=== PATIENT | male | born 1965 | race Caucasian/White ===

== ENCOUNTER 2023-04-09 17:35 | Inpatient (IN) | payer OTHER ==
[~2023-04-09] VITALS: Ht 167.6 cm; Wt 75.9 kg
[2023-04-09] MEDS ORDERED: DiphenhydrAMINE HCL 50 MG/ML VIAL IV ONE (18:00)
[2023-04-09] MEDS ORDERED: 0.9%NACL 1000ML 1,000 ML IV ONE (18:00)
[2023-04-09 18:12] LABS: HEMATOCRIT 37.3 % (42-54); MEAN CORPUSCULAR HEMOGLOBIN 31.3 pg (27.0-33.0); MEAN CORPUSCULAR HGB CONC 32.4 g/dL (32.0-36.0); MEAN CORPUSCULAR VOLUME 96.4 fL (79-99); PLATELET COUNT (AUTO) 632 K/uL (130-400); RED BLOOD CELL COUNT(AUTO) 3.87 MIL/uL (4.50-6.20); RED CELL DISTRIBUTION WIDTH 14.2 % (11.0-15.5); WHITE BLOOD COUNT (AUTO) 15.8 K/uL (4.8-10.8)
[2023-04-09 18:30] LABS: ALBUMIN 1.6 g/dL (3.5-5.0); BILIRUBIN,TOTAL 0.4 mg/dL (0.2-1.0); TOTAL PROTEIN, SERUM 6.7 g/dL (6.0-8.3)
[2023-04-09] MEDS: CLINDAMYCIN IVPB 600MG/50ML 50 ML IV SCH (18:30)
[2023-04-09] MEDS: IVERMECTIN 3 MG TAB PO SCH (18:31)
[2023-04-09] MEDS ORDERED: [UNRECOGNIZED DRUG - OTHER] IV ONE (19:30)
[2023-04-09 19:46] LABS: BAND NEUTROPHILS % (MANUAL) 1 % (0-2); EOSINOPHILS % (MANUAL) 11 % (1-6); LYMPHOCYTES % (MANUAL) 10 % (22-44); MAN.DIFF COMMENT-IMPRESSION MANUAL DIFFERENTIAL; MONOCYTES % (MANUAL) 9 % (2-9); PLATELET MORPHOLOGY COMMENT SLIGHT INCREASED; SEGMENTED NEUTROPHILS % 69 % (40-70); TOTAL CELLS COUNTED 100
[2023-04-09] MEDS ORDERED: ACETAMINOPHEN 325 MG TAB PO PRN ×2 (20:00)
[2023-04-09] MEDS ORDERED: ONDANSETRON 4MG INJ IV PRN (20:00)
[2023-04-09] MEDS ORDERED: LACTULOSE 20 GM/30 ML UDCUP PO PRN (20:00)
[2023-04-09] MEDS ORDERED: DiphenhydrAMINE HCL 50 MG/ML VIAL IV PRN (20:00)
[2023-04-09] MEDS: 0.9%NACL 1000ML 1,000 ML IV SCH (20:48)
[2023-04-09] MEDS: FAMOTIDINE 20MG TAB PO SCH (21:27)
[2023-04-10] VITALS (8 sets, daily range): BP systolic 92–130; BP diastolic 55–75; PULSE 62–92; RESP 16–18; O2SAT 96
[2023-04-10] MEDS: CLINDAMYCIN IVPB 600MG/50ML 50 ML IV SCH ×3 (01:22→18:27)
[2023-04-10] MEDS: 0.9%NACL 1000ML 1,000 ML IV SCH ×2 (04:25→17:47)
[2023-04-10] MEDS: ENOXAPARIN SODIUM 40 MG/0.4 ML SYRINGE SQ SCH ×2 (09:00→10:17)
[2023-04-10] MEDS: FAMOTIDINE 20MG TAB PO SCH ×2 (10:17→21:37)
[2023-04-10 10:52] LABS: APPEARANCE,URINE CLEAR (CLEAR); BILIRUBIN,URINE NEGATIVE (NEGATIVE); COLOR,URINE YELLOW (YELLOW); GLUCOSE, URINE (UA) NEGATIVE (NEGATIVE); KETONES,URINE NEGATIVE (NEGATIVE); LEUKOCYTE ESTERASE ,URINE NEGATIVE Leu/uL (NEGATIVE); NITRATE,URINE NEGATIVE (NEGATIVE); OCCULT BLOOD,URINE NEGATIVE (NEGATIVE); PH,URINE 6.5 (5.0-8.0); PROTEIN,URINE NEGATIVE (NEGATIVE); UROBILINOGEN,URINE 3 mg/dL (0.2-1.0)
[2023-04-10 10:58] LABS: ADD UA MICROSCOPIC YES; MUCUS,URINE RARE LPF (None Seen); RBC,URINE 0-1 /HPF (0-1); WBC,URINE 0-1 /HPF (0-1)
[2023-04-10] MEDS ORDERED: PERMETHRIN CREAM 5% 60GM TUBE TP ONE (12:00)
[2023-04-10] MEDS: IVERMECTIN 3 MG TAB PO SCH (16:52)
[2023-04-11] VITALS (8 sets, daily range): BP systolic 102–138; BP diastolic 52–78; PULSE 76–90; RESP 16–19; O2SAT 99–100
[2023-04-11] MEDS: CLINDAMYCIN IVPB 600MG/50ML 50 ML IV SCH ×3 (03:08→17:28)
[2023-04-11] MEDS: ENOXAPARIN SODIUM 40 MG/0.4 ML SYRINGE SQ SCH (09:00)
[2023-04-11 09:10] LABS: BASOPHILS # (AUTO) 0.05 K/uL (0.00-0.20); BASOPHILS % (AUTO) 0.5 % (0.0-5.0); EOSINOPHILS % (AUTO) 33.7 % (0.0-8.0); HEMATOCRIT 34.4 % (42-54); IMMATURE GRANULOCYTE ABSOLUTE 0.02 K/uL (0-1); LYMPHOCYTES # (AUTO) 1.8 K/uL (1.0-4.8); MEAN CORPUSCULAR HEMOGLOBIN 31.7 pg (27.0-33.0); MEAN CORPUSCULAR VOLUME 99.1 fL (79-99); MONOCYTES # (AUTO) 0.5 K/uL (0.1-1.0); MONOCYTES % (AUTO) 5.5 % (3.0-13.0); NEUTROPHILS # (AUTO) 3.9 K/uL (1.8-7.7); NEUTROPHILS % (AUTO) 41.1 % (40.0-77.0); PLATELET COUNT (AUTO) 499 K/uL (130-400); RED BLOOD CELL COUNT(AUTO) 3.47 MIL/uL (4.50-6.20); RED CELL DISTRIBUTION WIDTH 14.5 % (11.0-15.5); WHITE BLOOD COUNT (AUTO) 9.5 K/uL (4.8-10.8)
[2023-04-11 09:21] LABS: ALBUMIN 1.4 g/dL (3.5-5.0); BILIRUBIN,TOTAL 0.3 mg/dL (0.2-1.0); CREATININE 0.8 mg/dL (0.5-1.5); MAGNESIUM 1.8 mg/dL (1.80-2.40); POTASSIUM 3.4 mmol/L (3.5-5.1); TOTAL PROTEIN, SERUM 5.9 g/dL (6.0-8.3)
[2023-04-11] MEDS: FAMOTIDINE 20MG TAB PO SCH ×2 (09:33→19:58)
[2023-04-11] MEDS: 0.9%NACL 1000ML 1,000 ML IV SCH ×2 (12:34→19:59)
[2023-04-12] VITALS (7 sets, daily range): BP systolic 101–123; BP diastolic 57–76; PULSE 67–89; RESP 16–18; O2SAT 98–99
[2023-04-12] MEDS: CLINDAMYCIN IVPB 600MG/50ML 50 ML IV SCH ×3 (01:02→18:35)
[2023-04-12] MEDS: 0.9%NACL 1000ML 1,000 ML IV SCH ×2 (08:00→18:44)
[2023-04-12] MEDS: ENOXAPARIN SODIUM 40 MG/0.4 ML SYRINGE SQ SCH (09:00)
[2023-04-12] MEDS: FAMOTIDINE 20MG TAB PO SCH ×2 (12:07→20:26)
[2023-04-13] VITALS: BP 124/66; PULSE 88; RESP 16
[2023-04-13] MEDS: CLINDAMYCIN IVPB 600MG/50ML 50 ML IV SCH ×2 (01:19→10:42)
[2023-04-13] MEDS: 0.9%NACL 1000ML 1,000 ML IV SCH (03:37)
[2023-04-13 04:00] VITALS: BP 121/69; PULSE 81; RESP 16
[2023-04-13 07:52] VITALS: BP 121/76; PULSE 87; RESP 16
[2023-04-13 08:00] VITALS: O2SAT 99
[2023-04-13 08:20] LABS: BASOPHILS # (AUTO) 0.03 K/uL (0.00-0.20); BASOPHILS % (AUTO) 0.3 % (0.0-5.0); EOSINOPHILS # (AUTO) 3.28 K/uL (0.00-0.70); EOSINOPHILS % (AUTO) 35.2 % (0.0-8.0); HEMATOCRIT 31.2 % (42-54); IMMATURE GRANULOCYTE ABSOLUTE 0.02 K/uL (0-1); LYMPHOCYTES # (AUTO) 1.9 K/uL (1.0-4.8); LYMPHOCYTES % (AUTO) 20.6 % (21.0-51.0); MEAN CORPUSCULAR HEMOGLOBIN 31.5 pg (27.0-33.0); MEAN CORPUSCULAR HGB CONC 31.7 g/dL (32.0-36.0); MEAN CORPUSCULAR VOLUME 99.4 fL (79-99); MONOCYTES # (AUTO) 0.7 K/uL (0.1-1.0); MONOCYTES % (AUTO) 7.1 % (3.0-13.0); NEUTROPHILS # (AUTO) 3.4 K/uL (1.8-7.7); NEUTROPHILS % (AUTO) 36.6 % (40.0-77.0); PLATELET COUNT (AUTO) 470 K/uL (130-400); RED BLOOD CELL COUNT(AUTO) 3.14 MIL/uL (4.50-6.20); RED CELL DISTRIBUTION WIDTH 14.8 % (11.0-15.5); WHITE BLOOD COUNT (AUTO) 9.3 K/uL (4.8-10.8)
[2023-04-13 08:50] LABS: CREATININE 0.6 mg/dL (0.5-1.5); POTASSIUM 3.3 mmol/L (3.5-5.1)
[2023-04-13 08:54] LABS: ALBUMIN 1.3 g/dL (3.5-5.0); BILIRUBIN,TOTAL 0.2 mg/dL (0.2-1.0); MAGNESIUM 1.8 mg/dL (1.80-2.40); TOTAL PROTEIN, SERUM 5.6 g/dL (6.0-8.3)
[2023-04-13] MEDS: FAMOTIDINE 20MG TAB PO SCH (10:42)
[2023-04-13] MEDS: ENOXAPARIN SODIUM 40 MG/0.4 ML SYRINGE SQ SCH (10:43)
[2023-04-13 11:43] VITALS: BP 136/72; PULSE 98; RESP 16
== END 2023-04-13 15:50 | disposition home or self-care (01) | DRG 871 ==
LOC: EDH 17:35 → EDHIP 17:36 → 3BH 23:52
PROVIDERS: ADMIT Hospitalist; ATTEND Hospitalist
DX: A41.2 Sepsis due to unspecified staphylococcus (principal); E43 Unspecified severe protein-calorie malnutrition; E87.1 Hypo-osmolality and hyponatremia; Z68.27 Body mass index [BMI] 27.0-27.9, adult
CPT/HCPCS: 36415; 80053; 81001; 83605; 83735; 85025; 86140; 87040; 87077; 87186; G0378; J1200; J1650; J3490; J7030